=== PATIENT | male | born 1960 | race Caucasian/White ===

== ENCOUNTER 2018-04-02 12:09 | Emergency (ER) | payer OTHER ==
[2018-04-02 13:25] VITALS: BP 124/91
--- NOTE | 2018-04-02 13:25 | ED ---
Complex/Multi-Sys Presentation - HPI Summary HPI Summary: This is shelby Lincoln documenting for attending Alana Altman M.D. This patient is a 57 year old M presenting to [facility] accompanied by the farm owner operator of the apartments at [facility] with a chief complaint of possible CuCN exposure since 08:15 today. 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 Altman today, and ingested copper cyanide in a suicide gesture. Pt used the maintenance keys to enter the apt, at the direction of the farm owner operator of the apartments, who was responding to a call from the primarily exposed pt's mother who reported the probable ingestion as a suicide attempt. There was no response at the door, so this pt used his keys to open the apartment due to the emergency of an unresponsive suspected suicide occupant. [place] [employer] was also on the scene and determined that substances which were found, and later identified as copper cyanide, did not require decontamination prior to the suicide pt entering the [facility] ED. [facility] Police were also present. This pt states he did not touch the suicide patient or any of the substances recovered. Pt complained of LITTLEJOHN and nausea at the time he was in the apartment, but he believes those symptoms were from high temperature because the apartments are not air-conditioned. Pt feels no sx currently. He denies vision changes, emesis , dizziness, current LITTLEJOHN, nausea. PMHx HTN, DM, declines blood glucose check, states his sugar this AM was 121. Pt has not eaten yet today. Takes meds for both HTN and DM, FHx mother HTN, DM. PSHx right eye out, thyroid, left leg. - History Of Current Complaint Chief Complaint: EDExposureBodyFluid Time Seen by Provider: 04/02/18 12:42 Hx Obtained From: Patient, Other: - [place] [employer], poison control. Onset/Duration: Sudden Onset, Resolved Timing: Constant, Minutes - in the apartment Severity Currently: None Severity Initially: Mild Location: Negative Aggravating Factor(s): possible CuCN exposure Alleviating Factor(s): nothing Associated Signs And Symptoms: Positive: Headache - resolved, Nausea - resolved. Negative: Dizziness, Vomiting, Other - visual changes Related History: Other - possible copper cyanide exposure - Allergies/Home Medications Allergies/Adverse Reactions: Allergies Allergy/AdvReac Type Severity Reaction Status Date / Time No Known Allergies Allergy Verified 05/04/13 09:05 PMH/Surg Hx/FS Hx/Imm Hx Previously Healthy: No Endocrine/Hematology History: Reports: Hx Diabetes Cardiovascular History: Reports: Hx Hypertension Sensory History: Reports: Hx Eye Prosthesis, Hx Vision Problem - missing right eye Denies: Hx Deafness Opthamlomology History: Reports: Hx Eye Prosthesis, Hx Vision Problem - missing right eye EENT History: Denies: Hx Deafness - Surgical History Surgery Procedure, Year, and Place: right eye removed. thyroid, left leg Infectious Disease History: No Infectious Disease History: Denies: History Other Infectious Disease, Traveled Outside the [place] in Last 30 Days - Family History Known Family History: Positive: Hypertension, Diabetes - Social History Occupation: Employed Full-time Alcohol Use: Occasionally Substance Use Type: Reports: None Smoking Status (MU): Former Smoker Review of Systems Negative: Fever Negative: Photophobia, Blurred Vision Cardiovascular: Negative Respiratory: Negative Positive: Nausea. Negative: Vomiting Positive: no symptoms reported Skin: Negative Neurological: Other - NEGATIVE: dizziness Positive: Headache Psychological: Normal All Other Systems Reviewed And Are Negative: Yes Physical Exam - Summary Physical Exam Summary: Appearance: Well-appearing, no pain distress, well-nourished Skin: Warm, color reflects adequate perfusion, dry Head: Normal Head/Face inspection, atraumatic Eyes: Conjunctiva clear, reported right eye prosthesis appears normal ENT: Normal inspection Neck: Supple, no nodes, no JVD Respiratory: Lungs clear, normal breath sounds, no respiratory distress Cardio: RRR, No murmur, pulses normal, brisk capillary refill Abdomen: Soft, nontender Bowel sounds: Present Musculoskeletal: Strength Intact/ROM intact, no calf tenderness, no edema. Psychological: Normal Neuro: Alert, muscle tone normal, no focal deficit Triage Information Reviewed: Yes Vital Signs On Initial Exam: Initial Vitals Temp Pulse Resp BP Pulse Ox 98.1 F 99 18 133/92 96 04/02/18 12:39 04/02/18 12:39 04/02/18 12:39 04/02/18 12:39 04/02/18 12:39 Vital Signs Reviewed: Yes Diagnostics - Vital Signs Vital Signs Temp Pulse Resp BP Pulse Ox 04/02/18 12:39 98.1 F 99 18 133/92 96 - Laboratory Lab Statement: Any lab studies that have been ordered have been reviewed, and results considered in the medical decision making process. 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 Pt is DM, HTN and complained of headache and nausea at the time he opened the hot, non air-conditioned apartment, that resolved spontaneously. Pt's history was evaluated and pt was examined, and in conjunction with the information from the [place] [employer] and poison control, and based on clinical judgment, it was determined that this pt did not have a toxic exposure and does not need any further evaluation or treatment at this time. Pt is a type II diabetic on oral medication and he declines a glucose fingerstick in the ED, stating his glucose was 121 this am, and that he knows when his glucose is low, and that he will eat when he is discharged. - Diagnoses Provider Diagnoses: Normal exam, Exposure to chemical compounds Discharge - Sign-Out/Discharge Documenting (check all that apply): Patient Departure - discharge - Discharge Plan Condition: Stable Disposition: HOME Patient Education Materials: Normal Exam (ED) Referrals: Elise NIÑO,Iker Vuong [Primary Care Provider] - 1 Day (As needed.) Additional Instructions: Return to the Emergency Department for any changing or worsening symptoms. Follow up with your PCP in [place] in 1 day as needed. - Billing Disposition and Condition Condition: STABLE Disposition: Home
== END 2018-04-02 13:28 | disposition home or self-care (01) ==
LOC: ED 12:09
DX: Z77.29 Contact with and (suspected) exposure to other hazardous substances (principal); I10 Essential (primary) hypertension; E11.9 Type 2 diabetes mellitus without complications; Z79.4 Long term (current) use of insulin; Z87.891 Personal history of nicotine dependence; Z97.0 Presence of artificial eye
CPT/HCPCS: 99281